=== PATIENT | male | born 1935 | race African-American/Black ===

== ENCOUNTER 2021-04-03 10:29 | Inpatient (IN) | payer BC, OTHER ==
[~2021-04-03] VITALS: Ht 167.6 cm; Wt 68.3 kg
[~2021-04-03 10:29] MED LIST: DOXA4TAB3 PO; HYDR25TA PO; LOSA100T32 PO
[2021-04-03] MEDS ORDERED: SODIUM CHLORIDE 0.9% 500 ML IV ONE (11:00)
[2021-04-03 12:16] LABS: HEMATOCRIT. 44.8 % (42.0-52.0); HEMOGLOBIN. 14.5 g/dL (14.0-18.0); MEAN CORPUSCULAR HEMOGLOBIN 26.7 pg (28.0-32.0); MEAN CORPUSCULAR VOLUME 82.6 fL (80.0-94.0); MEAN PLATELET VOLUME 8.2 fl (7.4-10.4); PLATELET 294 x1000/uL (130-400); RED BLOOD CELL COUNT 5.43 mill/uL (4.7-6.1); RED CELL DISTRIBUTION WIDTH 14.6 % (11.6-14.6)
[2021-04-03 12:22] LABS: CHLORIDE 109 mEq/L (98-107)
[2021-04-03] MEDS ORDERED: SODIUM POLYSTYRENE SULFONATE 15 G/60 ML BOT PO ONE (13:15)
[2021-04-03] MEDS ORDERED: SODIUM CHLORIDE 0.9% 1,000 ML IV ONE (13:15)
[2021-04-03 15:27] LABS: PLATELET ESTIMATE NORMAL
[2021-04-03 15:59] LABS: CLARITY URINE CLEAR (CLEAR); COLOR URINE YELLOW (YELLOW); KETONES URINE NEGATIVE (NEGATIVE); LEUKOCYTE ESTERASE URINE NEGATIVE (NEGATIVE); NITRITE URINE NEGATIVE (NEGATIVE); OCCULT BLOOD URINE NEGATIVE (NEGATIVE); PROTEIN URINE 2+ (NEGATIVE); SPECIFIC GRAVITY URINE 1.016 (1.005-1.030)
[2021-04-03 22:00] VITALS: BP 150/66
[2021-04-03] MEDS ORDERED: CLONIDINE 0.1MG TABLET PO PRN (22:45)
[2021-04-03] MEDS ORDERED: ONDANSETRON HCL 4MG/2ML INJ IV PRN (22:45)
[2021-04-03] MEDS ORDERED: ACETAMINOPHEN 325MG TABLET PO PRN (22:45)
[2021-04-03] MEDS: DEXT 5%/0.45% NACL 1000ML 1,000 ML IV SCH (23:14)
[2021-04-04] VITALS: BP 128/52
[2021-04-04 04:00] VITALS: BP 92/77
[2021-04-04 08:00] VITALS: BP 149/73
[2021-04-04] MEDS: PANTOPRAZOLE 40MG DR TABLET PO SCH (08:04)
[2021-04-04] MEDS: ASPIRIN 81MG TABLET PO SCH (08:04)
[2021-04-04] MEDS ORDERED: ENOXAPARIN 30MG/0.3ML SYR SUBCUT SCH (09:00)
[2021-04-04] MEDS: DEXT 5%/0.45% NACL 1000ML 1,000 ML IV SCH (11:48)
[2021-04-04 12:00] VITALS: BP 147/70
[2021-04-04 13:05] LABS: BASOPHILS % 0.3 % (0.0-2.0); EOSINOPHILS % 0.7 % (0.0-5.0); HEMATOCRIT. 38.5 % (42.0-52.0); HEMOGLOBIN. 12.3 g/dL (14.0-18.0); LYMPHOCYTES % 13.1 % (20.0-50.0); MEAN CORPUSCULAR HEMOGLOBIN 26.6 pg (28.0-32.0); MEAN CORPUSCULAR VOLUME 82.9 fL (80.0-94.0); MEAN PLATELET VOLUME 8.5 fl (7.4-10.4); MONOCYTES % 6.6 % (2.0-8.0); NEUTROPHILS % 79.3 % (40.0-76.0); PLATELET 257 x1000/uL (130-400); RED BLOOD CELL COUNT 4.64 mill/uL (4.7-6.1)
[2021-04-04 13:45] LABS: CHLORIDE 116 mEq/L (98-107)
[2021-04-04 16:00] VITALS: BP_SYST 164; BP_SYST 168; BP_SYST 178; BP_DIAS 68; BP_DIAS 76; BP_DIAS 77
[2021-04-04] MEDS ORDERED: BISACODYL 10MG SUPP PR PRN (16:00)
[2021-04-04] MEDS ORDERED: LORAZEPAM 2MG/ML CPJ IV PRN (16:00)
[2021-04-04] MEDS ORDERED: IPRATROPIUM/ALBUTEROL 0.5-3(2.5)MG/3ML NEB HHN PRN (16:00)
[2021-04-04] MEDS ORDERED: DIPHENHYDRAMINE 50MG/ML VIAL IV PRN (16:00)
[2021-04-04] MEDS ORDERED: HYDROCODONE/ACETAMINOPHEN 5/325MG TABLET PO PRN (16:00)
[2021-04-04] MEDS: PIPERACILLIN/TAZOBACTAM 3.375G in DEXT 5% WATER 50ML IV SCH (17:13)
[2021-04-04] MEDS: DEXTROSE 5% WATER 1,000 ML IV SCH (17:14)
[2021-04-04 17:22] LABS: BG BASE EXCESS 0.4 mmol/L (-2.0-2.0); BG CARBOXYHEMOGLOBIN 0.3 % (0.5-1.5); BG DEOXYHEMOGLOBIN 4.9 % (0.0-5.0); BG FRACTION INSPIRED OXYGEN 21; BG HCO3 ACT 23.8 mmol/L (22.0-26.0); BG METHEMOGLOBIN 0.2 % (0.0-1.5); BG OXYGEN SATURATION 95.1 % (92.0-98.5); BG OXYHEMOGLOBIN 94.6 % (94.0-97.0); BG PCO2 34.3 mmHg (35.0-45.0); BG PH 7.459 (7.350-7.450); BG PO2 72.1 mmHg (75.0-100.0); BG SAMPLE SITE LEFT RADIAL; BG TOTAL HEMOGLOBIN 12.6 g/dL (12.0-18.0); BG VENT MODE ROOM AIR
[2021-04-04 20:00] VITALS: BP 134/66
[2021-04-04] MEDS ORDERED: PIPERACILLIN/TAZOBACTAM 3.375 G in DEXTROSE 5% WATER 50 ML IV SCH (21:00)
[2021-04-04 21:16] LABS: PROTHROMBIN TIME 11.2 sec (9.6-11.0)
[2021-04-05] VITALS: BP 139/68
[2021-04-05 04:00] VITALS: BP 154/70
[2021-04-05] MEDS: PIPERACILLIN/TAZOBACTAM 3.375G in DEXT 5% WATER 50ML IV SCH ×3 (05:05→21:32)
[2021-04-05] MEDS: DEXTROSE 5% WATER 1,000 ML IV SCH ×2 (05:06→19:04)
[2021-04-05 07:21] LABS: BASOPHILS % 0.3 % (0.0-2.0); EOSINOPHILS % 1.5 % (0.0-5.0); LYMPHOCYTES % 17.9 % (20.0-50.0); MEAN CORPUSCULAR HEMOGLOBIN 26.8 pg (28.0-32.0); MEAN CORPUSCULAR VOLUME 82.6 fL (80.0-94.0); MEAN PLATELET VOLUME 8.3 fl (7.4-10.4); MONOCYTES % 10.4 % (2.0-8.0); NEUTROPHILS % 69.9 % (40.0-76.0); PLATELET 265 x1000/uL (130-400); RED BLOOD CELL COUNT 4.48 mill/uL (4.7-6.1)
[2021-04-05 08:00] VITALS: BP_SYST 127; BP_SYST 163; BP_SYST 176; BP_DIAS 67; BP_DIAS 70; BP_DIAS 75
[2021-04-05] MEDS: ASPIRIN 81MG TABLET PO SCH (09:01)
[2021-04-05] MEDS: PANTOPRAZOLE 40MG DR TABLET PO SCH (09:01)
[2021-04-05 12:00] VITALS: BP 145/71
[2021-04-05] MEDS ORDERED: KEPP500 MT (13:41)
[2021-04-05] MEDS ORDERED: NALOXONE HCL 0.4MG/ML VIAL IV PRN (18:00)
[2021-04-05 20:00] VITALS: BP 138/62
[2021-04-06] VITALS: BP 140/65
[2021-04-06 04:00] VITALS: BP 145/63
[2021-04-06] MEDS: PIPERACILLIN/TAZOBACTAM 3.375G in DEXT 5% WATER 50ML IV SCH ×2 (05:01→14:00)
[2021-04-06 07:51] LABS: VITAMIN B12 SERUM 1306 pg/mL (211-911)
[2021-04-06 08:00] VITALS: BP_SYST 157; BP_SYST 159; BP_SYST 161; BP_DIAS 69; BP_DIAS 71
[2021-04-06] MEDS: ASPIRIN 81MG TABLET PO SCH (08:26)
[2021-04-06] MEDS: DEXTROSE 5% WATER 1,000 ML IV SCH (08:27)
[2021-04-06] MEDS ORDERED: FAMOTIDINE 20MG TABLET PO SCH (09:00)
== END 2021-04-06 15:47 | disposition left against medical advice (07) | DRG 73 ==
LOC: ER 10:29 → 8WST 14:23 → ENRESERV 20:47
PROVIDERS: ADMIT Internal Medicine; ATTEND Internal Medicine
PROC: 4A10X4Z Monitoring of Central Nervous Electrical Activity, External Approach (ICD-10-PCS; principal; 2021-04-06)
DX: G90.8 Other disorders of autonomic nervous system (principal); J18.9 Pneumonia, unspecified organism; I50.33 Acute on chronic diastolic (congestive) heart failure; N17.9 Acute kidney failure, unspecified; E87.0 Hyperosmolality and hypernatremia; I13.0 Hypertensive heart and chronic kidney disease with heart failure and stage 1 through stage 4 chronic kidney disease, or unspecified chronic kidney disease; J44.1 Chronic obstructive pulmonary disease with (acute) exacerbation; N18.9 Chronic kidney disease, unspecified; R73.9 Hyperglycemia, unspecified; R74.01 Elevation of levels of liver transaminase levels; G40.909 Epilepsy, unspecified, not intractable, without status epilepticus; D64.9 Anemia, unspecified; E87.5 Hyperkalemia; Z20.822 Contact with and (suspected) exposure to COVID-19; I27.20 Pulmonary hypertension, unspecified; E80.6 Other disorders of bilirubin metabolism; E86.0 Dehydration; Z91.19 Patient's noncompliance with other medical treatment and regimen; Z79.899 Other long term (current) drug therapy
CPT/HCPCS: 36415; 36600; 71045; 74176; 76770; 80048; 80053; 80061; 80076; 81003; 82375; 82607; 82805; 82962; 83036; 84300; 84436; 84443; 85025; 87426; 93005; 93306; 93880; 93970; 95816; 97161; 99291; C1893; J1650; J2543; J7030; J7040; J7060; J7070

== ENCOUNTER 2023-07-08 07:04 | Emergency (ER) | payer BC, MEDICARE ==
[~2023-07-08] VITALS: Ht 165.1 cm; Wt 70.0 kg
[~2023-07-08 07:04] MED LIST changes: +KEPP500 MT; -LOSA100T32 PO; +LOSA100T33 PO
[2023-07-08 07:33] VITALS: O2SAT 99
[2023-07-08] MEDS: ACETAMINOPHEN 325MG TABLET PO ONE (08:11)
[2023-07-08] MEDS: TETANUS, DIPHTHERIA, PERTUSSIS VAC/PF 0.5ML (>10YR OLD) IM ONE (08:15)
[2023-07-08] MEDS: CEFAZOLIN 1000MG PREMIX 50 ML IV ONE ×2 (08:50→08:52)
[2023-07-08 12:39] LABS: CHLORIDE 109 mEq/L (98-107); POTASSIUM 3.9 mEq/L (3.5-5.1); SODIUM 144 mEq/L (136-145)
[2023-07-08 12:40] LABS: CALCIUM 9.5 mg/dL (8.7-10.4); CARBON DIOXIDE 28 mEq/L (21-32)
[2023-07-08 12:41] LABS: BASOPHILS % 0.5 % (0.0-2.0); EOSINOPHILS % 0.6 % (0.0-5.0); HEMATOCRIT. 36.9 % (42.0-52.0); LYMPHOCYTES % 23.2 % (20.0-50.0); MEAN CORPUSCULAR HGB CONC 32.4 g/dL (31.0-37.0); MEAN CORPUSCULAR VOLUME 83.1 fL (80.0-94.0); MEAN PLATELET VOLUME 8.4 fl (7.4-10.4); MONOCYTES % 6.7 % (2.0-8.0); PLATELET 149 x1000/uL (130-400); RED BLOOD CELL COUNT 4.43 mill/uL (4.7-6.1); RED CELL DISTRIBUTION WIDTH 18.9 % (11.6-14.6); WHITE BLOOD COUNT 4.4 x1000/uL (4.5-11.0)
[2023-07-08 12:45] LABS: CREATININE 1.8 mg/dL (0.6-1.3); GLUCOSE 87 mg/dL (70-105); UREA NITROGEN BLOOD 33 mg/dL (9-23)
[2023-07-08] MEDS: LIDOCAINE HCL 1% 20ML VIAL (Pyxis) INJ INFIL ONE (12:46)
[2023-07-08 12:47] LABS: ALANINE AMINOTRANSFERASE 12 IU/L (10-49); ALBUMIN 4.1 g/dL (3.2-4.8); ASPARTATE AMINOTRANSFERASE 30 IU/L (<34); BILIRUBIN TOTAL 0.4 mg/dL (0.1-1.0); PROTEIN TOTAL 7.2 g/dL (6.0-8.3)
[2023-07-08 17:24] VITALS: BP 125/71; PULSE 57; RESP 17; TEMP 97.9
== END 2023-07-08 17:26 | disposition short-term general hospital (02) ==
LOC: ER 07:04
DX: S62.501B Fracture of unspecified phalanx of right thumb, initial encounter for open fracture (principal); S09.90XA Unspecified injury of head, initial encounter; I10 Essential (primary) hypertension; W18.39XA Other fall on same level, initial encounter; Y93.89 Activity, other specified; Y92.89 Other specified places as the place of occurrence of the external cause; Y99.8 Other external cause status
CPT/HCPCS: 99291; 26605; 96365; 70450; 80053; 85025; 36415; 73130; 90715; 90471; J0690; J3490